=== PATIENT | male | born 1965 ===

== ENCOUNTER 2021-06-23 19:48 | Emergency (ER) | payer BC | END 2021-06-23 22:48 | disposition home or self-care (01) | LOC: SUPCPDRO 19:48 → JD.ED 19:48 | DX: I10 Essential (primary) hypertension (principal); E78.00 Pure hypercholesterolemia, unspecified; Z88.0 Allergy status to penicillin; Z79.899 Other long term (current) drug therapy | CPT/HCPCS: 36415; 71045; 71045-26; 80053; 83735; 84484; 85025; 93005; 99284-25 ==